=== PATIENT | male | born 1980 | race Caucasian/White ===

== ENCOUNTER 2022-03-07 15:44 | Emergency (ER) | payer MEDICAID, SELFPAY ==
[2022-03-07 15:51] VITALS: BP 109/76; PULSE 85; RESP 16; TEMP 37; O2SAT 98
--- NOTE | 2022-03-07 16:15 | DI.RAD_ITS ---
Exam(s) XR HAND RT COMPLETE EXAM: XR HAND RT COMPLETE CLINICAL HISTORY: punch injury, concern for boxers fracture TECHNIQUE: COMPARISON: No exams were available for comparison FINDINGS: Three views were obtained. There is a fracture of the base of the distal phalanx of the little finge r with moderate volar displacement of the distal fracture fragment. No other fracture seen. IMPRESSION: RADIATION DOSE DELIVERED: Total DLP
--- NOTE | 2022-03-07 16:21 | ED.GENADUL_ITS ---
Discharge Plan Disposition Patient Disposition: [facility] Condition: Improving Discharge Details Chief Complaint: Orthopedic Clinical Impression: Fracture, metacarpal, Distal phalanx or phalanges, closed fracture Primary Care Provider: Kailash Funes ED Provider: Armando Shay Home Meds and New Rx's Prescriptions: No Action No Known Home Meds Discharge Instructions Instructions: Finger Fracture (ED) Additional Instructions: Please follow-up with orthopedic surgery. Please keep splint clean and dry. Medical Decision Making 41-year-old male presents brought in by PD after punching a mounted phone unit, pain to ulnar aspect of right hand, deviation of fourth and fifth digits radially with flexion, median radial and ulnar nerve distribution sensation intact, flexion extension intact, capillary refill intact, radial pulse intact, no wrist deformity or pain. High clinical suspicion for metacarpal fracture. Will obtain x-ray, analgesia anti-inflammatory. Likely placed in ulnar gutter splint for close orthopedic follow-up. 18: 19 patient resting comfortably no acute distress. Requesting some medication for early opiate withdrawal however vital signs are stable patient has no vomiting tearing runny nose or signs of distress. Will dose Zofran. Patient placed in ulnar gutter splint for nondisplaced suspected fracture of metacarpal and distal phalanx. Will be given orthopedic follow-up. Patient is in police custody. Sign Out No HPI General Date/Time Provider Initiated Documentation: 03/07/22 16:12 . HPI Narrative: 41-year-old male presents brought in by PD after punching a mounted phone with his right hand, pain to right hand. No other injuries. Related Data Home Medications Medication Instructions Recorded Confirmed Unknown [No Known Home Meds] 03/07/22 03/07/22 Allergies Allergy/AdvReac Type Severity Reaction Status Date / Time prochlorperazine Allergy Severe dystonia Unverified 03/07/22 15:55 [From Compazine] prochlorperazine edisylate Allergy Severe dystonia Unverified 03/07/22 15:55 [From Compazine] prochlorperazine maleate Allergy Severe dystonia Unverified 03/07/22 15:55 [From Compazine] General Stated Complaint: Orthopedic KAVITA: 4 Review of Systems Narrative: Review of Systems Constitutional: negative Eyes: negative ENT: negative Cardiovascular: negative Respiratory: negative Gastrointestinal: negative : negative Musculoskeletal: Hand pain Skin: negative Neurologic: negative Psych: negative PFSH All Active Problems (Updated 03/07/22 @ 18:21 by Armando Shay MD) Fracture, metacarpal (Acute) Distal phalanx or phalanges, closed fracture (Acute) Social History Smoking/Tobacco Use Status: Current every day Tobacco Type: cigarettes Smoking risk assessment performed?: Yes Alcohol Intake: never Drug use: Daily Substance use type: marijuana, crack/cocaine and opiates Do you feel safe at home: Yes Do you feel safe in your relationship?: Yes Exam Narrative Exam Narrative: Physical Examination General: alert, awake, cooperative, resting comfortably, no acute distress HEENT: normocephalic, atraumatic; PERRL, EOM intact, conjunctiva normal; no nasal discharge; moist mucous membranes, oral and pharyngeal mucosa normal, tolerating secretions Neck: supple, trachea midline; full ROM Chest: normal to inspection Respiratory: normal respiratory effort, speaking in full sentences, clear to auscultation, no wheezing, rales or rhonchi Cardiac: regular rate, regular rhythm, S1S2 intact, no murmurs rubs or gallops GI: abdomen soft, non-tender, non-distended; no palpable mass or hepatosplenomegaly Skin: no lesions, rashes or trauma appreciated Neuro: AAOx3, normal speech, moving all extremities Extremities: Flexion extension of right hand fingers intact however patient's fourth and fifth digit do deviate radially while attempting to make a full fist, pain mainly located over ulnar aspect of right hand, no lacerations, patient has good capillary refill good sensation median radial and ulnar nerve distribution, radial pulse intact, no wrist pain or deformity Psych: Appropriate mood and affect Course Vital Signs Vital signs: Vital Signs Temperature 37.0 C 03/07/22 15:51 Pulse 85 03/07/22 15:51 Respiratory Rate 16 03/07/22 15:51 Blood Pressure 109/76 03/07/22 15:51 Pulse Oximetry 98 03/07/22 15:51 Temperature 37.0 C 03/07/22 15:51 Temperature Source Temporal Artery Scan 03/07/22 15:51 Pulse 85 03/07/22 15:51 Respiratory Rate 16 03/07/22 15:51 Respiratory Effort Non-Labored 03/07/22 15:53 Blood Pressure 109/76 03/07/22 15:51 Blood Pressure Position Sitting 03/07/22 15:51 Pulse Oximetry 98 03/07/22 15:51 Oxygen Delivery Method Room Air 03/07/22 15:51 Oxygen Flow Rate 0 03/07/22 15:51 Pain Level 7 03/07/22 15:56
[2022-03-07] MEDS: Ibuprofen 600 MG TAB PO (16:23)
[2022-03-07] MEDS: Acetaminophen 325 MG TAB 650 MG PO (16:23)
--- NOTE | 2022-03-07 16:46 | DI.VRAD_ITS ---
PROCEDURE INFORMATION: Exam: XR Right Hand Exam date and time: 03/07/2022 4:33 PM Age: 41 years old Clinical indication: Other: Punch injury, concern for boxers FX TECHNIQUE: Imaging protocol: Radiologic exam of the Right hand. 3image(s) are provided. Views: 3 or more views. COMPARISON: No relevant prior studies available. FINDINGS: Bones/joints: There is some slight radiocarpal level narrowing present likely developmental. There is some subtle offset at the proximal aspect of the 5th digit distal phalanx appears maintained on the frontal and oblique views although there appears to be some subtle separation on the lateral view therefore suggestive of nondisplaced fracture at this location. There is some subtle lucency although could represent averaging at the proximal aspect of the 5th metacarpal bone. No other interval cortical irregularity or periosteal reaction is appreciated. No dislocation is appreciated. Soft tissues: There is soft tissue swelling demonstrated dorsally predominant on the lateral view. No radiopaque foreign body or subcutaneous emphysema is appreciated. IMPRESSION: 1. There is soft tissue swelling present with a nondisplaced fracture at the proximal aspect of the 5th digit distal phalanx. 2. There is some marginal lucency although could represent some vascular channel type averaging at the proximal 5th metacarpal bone. No displaced fracture at this site is currently appreciated. Consider overall if there is localized point tenderness. Dictated and Authenticated by: Alberto Isabel MD. Ordering:MARIA ANTONIA Roberts MD
[2022-03-07] MEDS: Ondansetron O.D.T. 4 MG TABEF SL (18:21)
== END 2022-03-07 18:24 ==
PROVIDERS: Emergency Provider Emergency Medicine; PCP Family Medicine
DX: S62.394A Other fracture of fourth metacarpal bone, right hand, initial encounter for closed fracture (principal); S62.396A Other fracture of fifth metacarpal bone, right hand, initial encounter for closed fracture; W22.09XA Striking against other stationary object, initial encounter
CPT/HCPCS: 29125; 99285; 73130; 99283